=== PATIENT | female | born 1945 | race Caucasian/White ===

== ENCOUNTER 2018-11-27 13:11 | Inpatient (IN) | payer OTHER ==
[~2018-11-27] VITALS: Ht 152.4 cm; Wt 68.0 kg
[2018-11-27] MEDS ORDERED: ATENOLOL25 MG PO (15:06)
[2018-11-27] MEDS ORDERED: ALDACTONE25 MG PO (15:06)
[2018-11-27] MEDS ORDERED: CYMBALTA30 MG PO (15:06)
[2018-11-27] MEDS ORDERED: DIOVAN320 MG PO (15:06)
[2018-11-27] MEDS ORDERED: LANTUS SOL100 UNIT/1 SUBCUTANEO (15:07)
[2018-11-27] MEDS ORDERED: ZOCOR20 MG PO (15:08)
[2018-11-27] MEDS ORDERED: ZANTAC150 MG PO (15:08)
[2018-11-27] MEDS ORDERED: HUMALOG100 UNIT/1 (15:08)
[2018-11-27] MEDS ORDERED: PROBIOTIC1 EACH PO (15:09)
[2018-11-27] MEDS ORDERED: CARAFATE1 GM PO (15:09)
[2018-11-27] MEDS ORDERED: ALPHAGAN P5 ML OP (15:16)
[2018-11-27] MEDS ORDERED: DUREZOL5 ML OP (15:17)
== END 2018-12-04 13:48 | disposition home or self-care (01) | DRG 337 ==
LOC: O/R 11-29 05:55 → SURH 11-29 05:55 → AMB-ENDOS 11-29 13:01 → EDSTATUS 11-29 13:21 → SURH 11-29 13:24 → O/R 11-29 13:38 → SURH 11-30 10:19
PROVIDERS: Colon & Rectal Surgery; ADMIT Colon & Rectal Surgery
PROC: 0DNL4ZZ Release Transverse Colon, Percutaneous Endoscopic Approach (ICD-10-PCS; principal; 2018-11-29 07:00)
PROC: 0DJD8ZZ Inspection of Lower Intestinal Tract, Via Natural or Artificial Opening Endoscopic (ICD-10-PCS; 2018-11-29 07:00)
DX: K56.51 Intestinal adhesions [bands], with partial obstruction (principal)

== ENCOUNTER → 2018-12-08 | Emergency (ER) | payer OTHER ==
[~2018-12-08] VITALS: Ht 167.6 cm; Wt 68.0 kg
[~2018-12-08] MED LIST: ALDACTONE25 MG PO; ALPHAGAN P5 ML OP; ATENOLOL25 MG PO; CARAFATE1 GM PO; CYMBALTA30 MG PO; DIOVAN320 MG PO; DUREZOL5 ML OP; HUMALOG100 UNIT/1; LANTUS SOL100 UNIT/1 SUBCUTANEO; PROBIOTIC1 EACH PO; ZANTAC150 MG PO; ZOCOR20 MG PO
== END | disposition designated cancer center or children's hospital (05) ==
LOC: ER 03:12
DX: I21.4 Non-ST elevation (NSTEMI) myocardial infarction (principal); I11.9 Hypertensive heart disease without heart failure; R06.02 Shortness of breath; R53.1 Weakness